=== PATIENT | male | born 1990 | race Caucasian/White ===

== ENCOUNTER 2018-05-17 22:49 | Emergency (ER) | payer MEDICAID ==
[~2018-05-17] VITALS: Ht 170.2 cm; Wt 65.9 kg
[2018-05-18] MEDS ORDERED: CEPHALEXIN MONOHYDRATE 500 MG CAPSULE PO ONE
[2018-05-18] MEDS ORDERED: IBUPROFEN 800 MG TABLET PO ONE
[2018-05-18 00:09] VITALS: BP 126/68
== END 2018-05-18 00:10 | disposition home or self-care (01) ==
LOC: EMS 22:50
DX: L60.0 Ingrowing nail (principal); L03.031 Cellulitis of right toe; F17.210 Nicotine dependence, cigarettes, uncomplicated

== ENCOUNTER 2019-11-15 13:24 | Emergency (ER) | payer MEDICAID ==
[~2019-11-15] VITALS: Ht 170.2 cm; Wt 77.3 kg
[2019-11-15] MEDS ORDERED: ACET-2247 PO (13:43)
[2019-11-15] MEDS ORDERED: AMOX TR/POT CLAV 875 MG/125 MG TABLET PO ONE (14:15)
[2019-11-15 14:43] VITALS: BP 135/86
== END 2019-11-15 14:44 | disposition home or self-care (01) ==
LOC: EMS 13:29
DX: K02.9 Dental caries, unspecified (principal); F17.210 Nicotine dependence, cigarettes, uncomplicated
CPT/HCPCS: 99406

== ENCOUNTER 2020-02-29 17:59 | Emergency (ER) | payer MEDICAID ==
[~2020-02-29] VITALS: Ht 170.2 cm; Wt 79.5 kg
[~2020-02-29 17:59] MED LIST: ACET-2247 PO
[2020-02-29 19:28] VITALS: BP 127/73
== END 2020-02-29 19:49 | disposition home or self-care (01) ==
LOC: EMS 18:05
DX: K02.9 Dental caries, unspecified (principal); F17.210 Nicotine dependence, cigarettes, uncomplicated
CPT/HCPCS: 99406

== ENCOUNTER 2020-06-06 09:31 | Emergency (ER) | payer MEDICAID ==
[~2020-06-06] VITALS: Ht 170.2 cm; Wt 78.6 kg
[~2020-06-06 09:31] MED LIST changes: -ACET-2247 PO; +ACET-2865 PO
[2020-06-06] MEDS ORDERED: FLUORESCEIN SODIUM 1 MG STRIP ONE (10:24)
[2020-06-06] MEDS ORDERED: IBUPROFEN 800 MG TABLET PO ONE (10:30)
[2020-06-06] MEDS ORDERED: PROPARACAINE HCL 0.5% 15 ML OPHTHALMIC SOLUTION OD ONE (10:30)
[2020-06-06 10:50] VITALS: BP 128/78
== END 2020-06-06 11:23 | disposition home or self-care (01) ==
LOC: EMS 09:39
DX: H57.89 Other specified disorders of eye and adnexa (principal); F17.210 Nicotine dependence, cigarettes, uncomplicated

== ENCOUNTER 2021-02-01 18:36 | Emergency (ER) | payer MEDICAID ==
[~2021-02-01] VITALS: Ht 170.2 cm; Wt 79.5 kg
[2021-02-01 18:40] VITALS: BP 136/83
[2021-02-01] MEDS ORDERED: IBUPROFEN 800 MG TABLET PO ONE (21:15)
[2021-02-01] MEDS ORDERED: ACETAMINOPHEN 500 MG TABLET PO ONE (21:15)
== END 2021-02-01 21:30 | disposition left against medical advice (07) ==
LOC: EMS 18:38
DX: R51.9 Headache, unspecified (principal); Z53.21 Procedure and treatment not carried out due to patient leaving prior to being seen by health care provider

== ENCOUNTER 2021-02-02 04:27 | Emergency (ER) | payer SELFPAY ==
[~2021-02-02] VITALS: Ht 170.2 cm; Wt 79.5 kg
[2021-02-02] MEDS ORDERED: SODIUM CHLORIDE 0.9% 2,400 ML IV ONE (06:30)
[2021-02-02] MEDS ORDERED: ACETAMINOPHEN 500 MG TABLET PO ONE (06:30)
[2021-02-02 06:48] LABS: BASOPHILS % (AUTO) 0.2 % (0.0-2.0); EOSINOPHILS % (AUTO) 0.1 % (1.0-6.0); HEMOGLOBIN 15.7 g/dL (13.5-17.5); LYMPHOCYTES % (AUTO) 8.6 % (22.0-44.0); MEAN CORPUSCULAR HEMOGLOBIN 30.2 pg (26.0-34.0); MEAN CORPUSCULAR HGB CONC 33.4 G/dL (31.0-37.0); MEAN CORPUSCULAR VOLUME 91 fL (80-100); MONOCYTES # (AUTO) 0.8 K/uL (0.1-1.0); MONOCYTES % (AUTO) 6.9 % (2.0-9.0); NEUTROPHILS # (AUTO) 9.9 K/uL (1.8-7.7); NEUTROPHILS % (AUTO) 84.2 % (40.0-70.0); PLATELET COUNT (AUTO) 202 K/uL (150-450); RED BLOOD CELL COUNT(AUTO) 5.19 MIL/uL (4.50-5.90); RED CELL DISTRIBUTION WIDTH 13.4 % (11.5-14.5)
[2021-02-02 06:56] LABS: ANION GAP 8 mmol/L (8-16); CALCIUM, TOTAL 9.3 mg/dL (8.8-10.5); CARBON DIOXIDE 29 mmol/L (22-29); CHLORIDE 100 mmol/L (98-107); CREATININE 0.95 mg/dL (0.60-1.30); GLOMERULAR FILTR. RATE CALC > 60 mL/min (>60); GLUCOSE,RANDOM 104 mg/dL (70-110); POTASSIUM 4.1 mmol/L (3.5-5.1); SODIUM SERUM 137 mmol/L (136-145); UREA NITROGEN, BLOOD 9 mg/dL (7-18)
[2021-02-02 07:02] LABS: ALANINE AMINOTRANSFERASE 67 U/L (12-78); ALBUMIN 3.9 g/dL (3.4-5.0); ALKALINE PHOSPHATASE 106 U/L (46-116); ASPARTATE AMINOTRANSFERASE 28 U/L (15-37); BILIRUBIN,TOTAL 0.6 mg/dL (0.1-1.0); LIPASE 60 U/L (73-393); TOTAL PROTEIN, SERUM 7.8 g/dL (6.4-8.2)
[2021-02-02 07:07] LABS: LACTIC ACID 1.3 mmol/L (0.4-2.0)
[2021-02-02 07:20] LABS: INFLUENZA TYPE A NEGATIVE FOR TYPE A (NEGATIVE); INFLUENZA TYPE B NEGATIVE FOR TYPE B (NEGATIVE)
[2021-02-02] MEDS ORDERED: IOHEXOL 350 MG/ML 150 ML VIAL ONE (08:25)
[2021-02-02] MEDS ORDERED: SODIUM CHLORIDE 0.9% 100 ML ONE (08:25)
[2021-02-02 10:15] LABS: APPEARANCE,URINE CLEAR (CLEAR); BILIRUBIN,URINE NEGATIVE (NEGATIVE); GLUCOSE, URINE (UA) NEGATIVE (NEGATIVE); KETONES,URINE NEGATIVE (NEGATIVE); LEUKOCYTE ESTERASE ,URINE NEGATIVE (NEGATIVE); NITRATE,URINE NEGATIVE (NEGATIVE); OCCULT BLOOD,URINE NEGATIVE (NEGATIVE); PH,URINE 5.5 (5.0-8.0); PROTEIN,URINE NEGATIVE (NEGATIVE); UROBILINOGEN,URINE 0.2 mg/dL (<=1.0)
[2021-02-02] MEDS ORDERED: CIPROFLOXACIN HCL 250 MG TABLET PO ONE (10:15)
[2021-02-02] MEDS ORDERED: MetroNIDAZOLE 250 MG TABLET PO ONE (10:15)
[2021-02-02 12:31] LABS: C.DIFF GDH ANTIGEN, Stool Negative (Negative); C.DIFF TOXINS A&B, Stool Negative (Negative)
[2021-02-02 13:31] VITALS: BP 120/93
== END 2021-02-02 13:41 | disposition home or self-care (01) ==
LOC: EMS 04:29
DX: K52.9 Noninfective gastroenteritis and colitis, unspecified (principal); F17.210 Nicotine dependence, cigarettes, uncomplicated; Z20.822 Contact with and (suspected) exposure to COVID-19
CPT/HCPCS: 36415; 71045; 74177; 80053; 81003; 83605; 83690; 85025; 87040; 87324; 87426; 87449; 87804; 96360; 96361; 99285; A9575; J7030; J7050; U0003

== ENCOUNTER 2022-01-08 09:32 | Emergency (ER) | payer SELFPAY ==
[~2022-01-08] VITALS: Ht 170.2 cm; Wt 81.0 kg
[2022-01-08 09:33] VITALS: BP 121/81
== END 2022-01-08 11:29 | disposition home or self-care (01) ==
LOC: EMS 09:33
DX: S63.612A Unspecified sprain of right middle finger, initial encounter (principal); F17.210 Nicotine dependence, cigarettes, uncomplicated; X50.9XXA Other and unspecified overexertion or strenuous movements or postures, initial encounter; Y93.89 Activity, other specified; Y92.89 Other specified places as the place of occurrence of the external cause; Y99.8 Other external cause status
CPT/HCPCS: 99283

== ENCOUNTER 2022-02-09 16:50 | Emergency (ER) | payer SELFPAY ==
[~2022-02-09] VITALS: Ht 170.2 cm; Wt 85.0 kg
[2022-02-09 16:51] VITALS: BP 136/94
[2022-02-09] MEDS ORDERED: PENI500T2 PO (17:27)
[2022-02-09] MEDS ORDERED: HYDR-4723 PO (17:28)
== END 2022-02-09 17:39 | disposition home or self-care (01) ==
LOC: EMS 16:50
DX: K08.89 Other specified disorders of teeth and supporting structures (principal)
CPT/HCPCS: 99283; Z7502

== ENCOUNTER 2022-02-10 13:47 | Emergency (ER) | payer MEDICAID ==
[~2022-02-10] VITALS: Ht 170.2 cm; Wt 83.2 kg
[~2022-02-10 13:47] MED LIST changes: -ACET-2865 PO; +HYDR-4723 PO; +PENI500T2 PO
[2022-02-10] MEDS ORDERED: BENZOCAINE/MENTHOL/ZINC CL 20% 11.9 GM GEL TP ONE (15:45)
[2022-02-10 16:54] VITALS: BP 129/85
== END 2022-02-10 16:57 | disposition home or self-care (01) ==
LOC: EMS 13:48
DX: K04.7 Periapical abscess without sinus (principal); K08.89 Other specified disorders of teeth and supporting structures; Z79.899 Other long term (current) drug therapy
CPT/HCPCS: 41800; 99284; Z7502; Z7610

== ENCOUNTER 2022-03-23 07:46 | Emergency (ER) | payer MEDICAID ==
[~2022-03-23] VITALS: Ht 170.2 cm; Wt 81.8 kg
[2022-03-23] MEDS ORDERED: PERTUSS(ACELL),DIPH,TET VAC/PF 0.5 ML SYRINGE IM. ONE (08:30)
[2022-03-23] MEDS ORDERED: SODIUM CHLORIDE 0.9% 250 ML IRRIG SOLUTION BOTTLE IRRIG ONE (08:30)
[2022-03-23] MEDS ORDERED: LIDOCAINE 1% 10 ML VIAL ID ONE (08:30)
[2022-03-23 10:01] VITALS: BP 126/77
[2022-03-23] MEDS ORDERED: CEPH-558 PO (10:03)
== END 2022-03-23 10:11 | disposition home or self-care (01) ==
LOC: EMS 07:48
DX: S41.112A Laceration without foreign body of left upper arm, initial encounter (principal); W19.XXXA Unspecified fall, initial encounter; Y93.89 Activity, other specified; Y92.59 Other trade areas as the place of occurrence of the external cause; Y99.8 Other external cause status
CPT/HCPCS: 99284; 90715; 90471; 12002; 96372; J0690; J3490